=== PATIENT | female | born 1955 ===

== ENCOUNTER 2017-03-18 09:25 | Day surgery (SDC) | payer OTHER ==
[~2017-03-18] VITALS: Ht 157.5 cm; Wt 81.6 kg
[2017-03-18] VITALS (13 sets, daily range): BP systolic 121–166; BP diastolic 52–102
--- NOTE | 2017-03-18 08:36 | Pre-Procedure Note/Attestation ---
Pre-Procedure Note/Attestation Complete Prior to Procedure Planned Procedure: left Procedure Narrative: left knee scope, chondroplasty Indications for Procedure Pre-Operative Diagnosis: left knee chondromalacia Attestation I attest that I discussed the nature of the procedure; its benefits; risks and complications; and alternatives (and the risks and benefits of such alternatives ), prior to the procedure, with the patient (or the patient's legal event representative). I attest that, if there was a reasonable possibility of needing a blood transfusion, the patient (or the patient's legal event representative) was given the [facility] standardized written summary, pursuant to the [employer] [place] Blood Safety Act ([place] Health and Safety Code # 1645, as amended). I attest that I re-evaluated the patient just prior to the surgery and that there has been no change in the patient's H&P, except as documented below: none DWAIN FERREIRA Mar 18, 2017 08:36
[~2017-03-18 09:25] MED LIST: ceFAZolin 1gm in D5W 55ml IVP ONE; celeBREX 200mg Cap **SURGERY PATIENTS ONLY ORAL ONE; oxyCONTIN 20mg tab ORAL ONE
[2017-03-18] MEDS ORDERED: OMEPRAZOLE40 M1 ORAL (10:05)
[2017-03-18] MEDS ORDERED: PRAVACHOL40 MG ORAL (10:05)
[2017-03-18] MEDS ORDERED: ZANTAC150 MG ORAL (10:05)
--- NOTE | 2017-03-18 10:47 | Anethesia Preoperative Eval ---
Anesthesia Pre-op PMH/ROS General Date of Evaluation: Mar 18, 2017 Anesthesiologist: Andres ASA Score: ASA 2 Mallampati Score Class I : Soft palate, uvula, fauces, pillars visible Class II: Soft palate, uvula, fauces visible Class III: Soft palate, base of uvula visible Class IV: Only hard plate visible Mallampati Classification: Class II Surgeon: Perez Diagnosis: Left knee internal derangement Surgical Procedure: Left knee arthroscopy Anesthesia History: none Family History: no anesthesia problems Allergies: Coded Allergies: No Known Allergies (Unverified , 03/18/17) Medications: see eMAR Past Medical History Cardiovascular: Reports: other - HLD, Denies: HTN, CAD, CO, valve dz, arrhythmia Pulmonary: Reports: asthma, Denies: COPD, DONNA, other Gastrointestinal/Genitourinary: Denies: GERD, CRI, ESRD, other Neurologic/Psychiatric: Denies: dementia, CVA, depression/anxiety, TIA, other Endocrine: Denies: DM, hypothyroidism, steroids, other HEENT: Denies: cataract (L), cataract (R), glaucoma, [place] (L), [place] (R), other Hematology/Immune: Denies: anemia, DVT, bleeding disorder, other Musculoskeletal/Integumentary: Denies: OA, RA, DJD, DDD, edema, other Other: obesity PSxH Narrative: lumbar laminectomy Anesthesia Pre-op Phys. Exam Physician Exam Last Vital Signs Date Time Temp Pulse Resp B/P (MAP) Pulse Ox O2 Delivery O2 Flow Rate FiO2 03/18/17 09:58 97.9 84 16 123/65 95 Room Air Constitutional: NAD Cardiovascular: RRR Respiratory: CTA Airway Exam Mallampati Score: Class II MO: full ROM: full Teeth: intact Anesthesia Pre-op A/P Labs see chart Studies Pre-op Studies: EKG - sr Risk Assessment & Plan Assessment: ASA II Plan: GA Status Change Before Surgery: No Pre-Antibiotics Drug: Ancef 1g Given Within 1 Hr of Incision: DOMINGA Alicea M.D. Mar 18, 2017 10:47
[2017-03-18] MEDS ORDERED: LR 1000ml 1,000 ML IVLG SCH (11:25)
[2017-03-18] MEDS ORDERED: Ropivacaine 5mg/ml Vial 30ml INJ ONE (11:25)
--- NOTE | 2017-03-18 11:27 | Immediate Post-Op Evaluation ---
Immediate Post-Op Evalulation Immediate Post-Op Evalulation Procedure: Left knee arthroscopy Date of Evaluation: Mar 18, 2017 Time of Evaluation: 12:53 IV Fluids: 800 Blood Products: 0 Estimated Blood Loss: min Urinary Output: 0 Blood Pressure Systolic: 155 Blood Pressure Diastolic: 94 Pulse Rate: 84 Respiratory Rate: 16 O2 Sat by Pulse Oximetry: 100 Temperature (Fahrenheit): 98.1 Pain Score (1-10): 0 Nausea: No Vomiting: No Complications 0 Patient Status: awake, reacts, patent, none Hydration Status: adequate Drug: Ancef 1g Given Within 1 Hr of Incision: Yes Time Given: 11:40 DOMINGA BARBOZA M.D. Mar 18, 2017 11:27
--- NOTE | 2017-03-18 11:27 | 48 Hour Post Anesthesia Eval ---
Post Anesthesia Evaluation Procedure: Left knee arthroscopy Date of Evaluation: Mar 18, 2017 Blood Pressure Systolic: 141 0: 75 Pulse Rate: 95 Respiratory Rate: 16 Temperature (Fahrenheit): 97.4 O2 Sat by Pulse Oximetry: 98 Airway: patent Nausea: No Vomiting: No Pain Intensity: 0 Hydration Status: adequate Cardiopulmonary Status: at baseline Mental Status/LOC: patient returned to baseline Post-Anesthesia Complications: 0 Follow-up care needed: ready to discharge DOMINGA BARBOZA M.D. Mar 18, 2017 11:27
[2017-03-18] MEDS ORDERED: fentaNYL 100 mcg/2 mL IV PRN (11:30)
[2017-03-18] MEDS ORDERED: Lidocaine 1% MPF 10mg/ml 5ml ONE (11:30)
[2017-03-18] MEDS ORDERED: Midazolam 2mg/2ml Inj ONE (11:30)
[2017-03-18] MEDS ORDERED: LR 1000ml ONE (11:30)
[2017-03-18] MEDS ORDERED: Metoclopramide 10mg/2ml Inj IVP PRN (11:30)
[2017-03-18] MEDS ORDERED: LORazepam Inj 2mg/ml 1ml IV PRN (11:30)
[2017-03-18] MEDS ORDERED: Hydromorphone 0.5mg/0.5ml inj IVP PRN (11:30)
[2017-03-18] MEDS ORDERED: NS Irrig 4000ml IRRIG ONE (11:30)
[2017-03-18] MEDS ORDERED: Midazolam 2mg/2ml Inj IVP PRN (11:30)
[2017-03-18] MEDS ORDERED: fentaNYL 100 mcg/2 mL IV ONE (11:30)
[2017-03-18] MEDS ORDERED: Propofol 200mg/20ml IV ONE (11:30)
[2017-03-18] MEDS ORDERED: DiphenhydrAMINE 50mg/ml Inj IVP PRN (11:30)
[2017-03-18] MEDS ORDERED: HYDROmorphone 1mg/ml Carpuject SUBQ PRN (12:30)
[2017-03-18] MEDS ORDERED: Tylenol #3 tab (300mg/30mg) ORAL PRN (12:30)
[2017-03-18] MEDS ORDERED: D5 1/2NS 1,000 ML IV SCH (12:30)
[2017-03-18] MEDS ORDERED: Norco 5mg/325mg tab ORAL PRN (12:30)
--- NOTE | 2017-03-18 12:40 | Brief Operative Note ---
Immediate Post Operative Note Operative Note Chief Complaint: left knee pain Pre-op Diagnosis: left knee chondromalacia Procedure: left knee scope, chondroplasty Post-op Diagnosis: same as pre-op Findings: consistent w/pre-op dx studies Surgeon: md jg Hat Brim Curler: nicole caal Anesthesiologist: md nata Anesthesia: general Specimen: none Complications: none Condition: stable Fluids: ns Estimated Blood Loss: minimal Drains: none Implant(s) used?: No BARBARA CAAL Mar 18, 2017 12:40
--- NOTE | 2017-03-18 22:45 | Operative Note - Dictated ---
DATE OF OPERATION: 03/18/2017 PREOP DX: Left knee significant patellofemoral crepitation and chondral irregularities. POSTOP DX: 1. 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 2. Left knee superior patellar chondral damage with grade 3 and grade 4 chondromalacia of the medial lateral facet involving the superior half of the patella. 3. Left knee grade 4 chondromalacia of the medial femoral condyle measuring 2 x 3 cm in the weightbearing zone in the medial femoral condyle. 4. No evidence of meniscus tearing. PROCEDURES: 1. Left knee arthroscopy and extensive intraarticular shaving. 2. Left knee patellofemoral chondroplasty with resection of unstable chondral flap. 3. Left knee medial femoral chondroplasty with resection of unstable chondral flap. SURGEON: Robinson Todd M.D. PROOF PASSER: Shea Worthington PA-C. Stroboscope Operator was present during the actual operative portion of the case and was important and essential part of the operation. During the operation, the gift shop assistant held and operated the arthroscopic camera for visualization, assisted by manipulating the leg to help with visualization, and helped with essential parts of the repair process as necessary such as operating surgical instruments under surgeon supervision, suture management, and wound closures. ANESTHESIOLOGIST: Dr. Early. ANESTHESIA: General LMA anesthesia. TOURNIQUET TIME: 25 minutes. EBL: Less than 20 mL. COMPLICATIONS: None. SURGICAL INDICATION: Patient is a 61-year-old female who sustained the above injury to her knee. The patient was treated non-operative initially, but this did not alleviate the patients symptoms. Therefore, after discussing all non-surgical and surgical options, and discussing all foreseeable risk and benefits of surgery, the patient opted for surgical treatment as described above. PATIENT POSITIONING: Patient was brought to the operating room table and placed supine. All pressure points were well padded. General Anesthesia was induced and a well padded tourniquet was placed on the thigh. The lateral post was placed and positioned to allow for opening of the medial compartment of the knee without placing pressure over the fibular head. Patients entire leg was prepped and draped in the usual sterile fashion. Time out was performed and preop abx was given and after exsanguinating the lower extremity, the tourniquet was inflated to 275 mmHg. EXAMINATION OF THE KNEE UNDER ANESTHESIA: Before prepping and draping the knee and while the patient was relaxed under general anesthesia, the knee was examined for ROM, and anterior and posterior, medial and lateral, posterolateral, and posteromedial instability. Pivot shift testing was performed. There was no evidence of loss of motion or instability and the pivot shift testing was negative. PORTAL PLACEMENT: The lateral portal was placed with the knee flexed to 90 degrees at the level of inferior border of the patella in line with the lateral border of the patella. A cm skin incision was made with an eleven blade, and using a blunt obturator, the capsule was gently penetrated. Sterile saline solution was then infused inside the knee with the aid of a pump set at 35 mm mercury pressure. Under direct visualization, placement of the medial portal was preliminary judged using a spinal needle, and it was subsequently established using the same technique as the lateral portal. Care was given not to injure the cutaneous branches of the medial Saphenous nerve or the subcutaneous veins. DIAGNOSTIC ARTHROSCOPY: The suprapatellar patellar pouch was visualized. There was no evidence of scar tissue or loose fragments. The medial and lateral patellar facets and trochlear groove articular cartilage was visualized. There was extensive trochlear cartilage damage with uneven surfaces with grade 4 chondromalacia measuring 3 x 4 cm in the central trochlear groove. There was unstable chondral flap at the edges. The medial plica shelf and the corresponding medial femoral condyle articular cartilage were visualized. The patella has grade 4 chondromalacia in the superior aspect on the medial lateral facet involving the top half of the patella. There was no significantly thickening of the medial plica shelf and there were no kissing? lesion over the medial femoral condyle. The lateral gutter and the posterolateral corner of the knee were visualized. There were no loose bodies, and the popliteus tendon and other structures of the posterolateral corner of the knee were intact intra-articularly. At this point, the knee was placed in the figure of four position and the lateral compartment was entered. The lateral femoral condyle, lateral tibial plateau, and the anterior, body, and the posterior horn of the lateral meniscus were visualized and probed. The articular surfaces were intact and devoid of articular cartilage damage. The lateral meniscus was completely intact both on its undersurface and on the top. The knee was then placed at 90 degree and the ACL and PCL were visualized and probed. The ACL was completely intact on visualization and probing, and it had excellent tension. The PCL was completely intact on visualization and probing and it had excellent tension. The medial compartment was then entered and the medial femoral condyle, medial tibial plateau, and the anterior, body, and the posterior horn of the medial meniscus were visualized and probed. There was a chondral damage over the medial femoral condyle measuring 2 x 3 cm. There was a large unstable chondral flap over there that was catching. This was grade 4 chondromalacia. This measured 2 x 3 cm on the weightbearing zone of the medial femoral condyle. The medial meniscus was completely intact both on its undersurface and on the top. The medial gutter was visualized. There was no evidence of defect or loose fragments. The scope was then brought back to the patella femoral compartment. OPERATIVE ARTHROSCOPY: At this point, all loose debris and fragments were removed with the use of suction motorized shaver. Specific attention was given to assure all visible loose fragments were irrigated out of the knee joint with pump inflow and cannula outflow system. The frayed articular cartilage of the undersurface of the patella and the trochlear groove were debrided using a motorized shaver. Suction was used to pull in the loose fragments and flaps of the cartilage and to minimize damage to the intact and well attached portion of the cartilage. This allowed for a smooth surface for the articular cartilage gliding. Care was given to the area of cartilage damage in the medial compartment. The frayed and loose fragments of articular cartilage were debrided using a motorized shaver. Suction was used to pull in the loose fragments and flaps of the cartilage and to minimize damage to the intact and well attached portion of the cartilage. This allowed for smooth surfaces for the articular cartilage. CONDITION AT DISCHARGE FROM OPERATING ROOM: The knee was irrigated with copious amount of normal saline at the end of the procedure. The scope was removed and the water was drained. The skin edges were re-approximated and sterile dressing was applied. All lap count and instrument counts were correct. Patient tolerated the procedure well without complications and was taken to the recovery room in stable conditions. Robinson oTdd M.D. DR: JUAN JOB#: [id number] CC:
[2017-03-19 08:32] VITALS: BP 141/75
== END 2017-03-18 14:50 | disposition home or self-care (01) ==
LOC: SUR 09:25
DX: M22.42 Chondromalacia patellae, left knee (principal); I10 Essential (primary) hypertension; Z86.73 Personal history of transient ischemic attack (TIA), and cerebral infarction without residual deficits; I25.2 Old myocardial infarction; G40.909 Epilepsy, unspecified, not intractable, without status epilepticus; E78.5 Hyperlipidemia, unspecified
CPT/HCPCS: 29877; J0360; J0690; J1170; J2250; J2405; J2704; J2795; J3010; J7120; 94003; 94150